=== PATIENT | female | born 1995 | race Two or more races ===

== ENCOUNTER 2020-04-13 01:15 | Inpatient (IN) | payer OTHER ==
[~2020-04-13] VITALS: Ht 167.6 cm; Wt 72.6 kg
[2020-04-13] MEDS ORDERED: PRENATAL CAPLE1 EAC1 PO (02:04)
== END 2020-04-15 09:09 | disposition home or self-care (01) | DRG 833 ==
LOC: OBS/DEL 01:15 → LDR 08:41 → OB/GYN 08:41
PROVIDERS: ADMIT Obstetrics & Gynecology; ATTEND Obstetrics & Gynecology
PROC: 4A1HXFZ Monitoring of Products of Conception, Cardiac Rhythm, External Approach (ICD-10-PCS; principal; 2020-04-13)
DX: O46.8X3 Other antepartum hemorrhage, third trimester (principal); Z20.828 Contact with and (suspected) exposure to other viral communicable diseases; Z3A.33 33 weeks gestation of pregnancy